=== PATIENT | female | born 1945 | race Caucasian/White ===

== ENCOUNTER 2020-02-11 14:59 | Outpatient (CLI) | payer MEDICARE, BC, SELFPAY ==
[2020-02-11 15:17] LABS: Basophils Absolute Auto 0.1 K/mm3 (0.0-0.1); Basophils Percent Auto 0.8 % (0.2-1.2); Eosinophils Absolute Auto 0.3 K/mm3 (0-0.3); Eosinophils Percent Auto 4.3 % (0-4.4); Hematocrit 35.1 % (37.0-47.0); Hemoglobin 10.3 g/dL (12.0-15.0); Immature Granulocyte Absolute 0.03 K/mm3 (0.00-0.031); Immature Granulocyte Percent A 0.5 % (0-0.5); Lymphocytes Absolute Auto 1.76 K/mm3 (0.9-3.2); Lymphocytes Percent Auto 29.2 % (18.3-44.2); Mean Corpuscular HGB Conc 29.3 g/dl (32-36); Mean Corpuscular Hemoglobin 24.6 pg (26-34); Mean Corpuscular Volume 83.8 fl (80-100); Mean Platelet Volume 9.7 fl (7.4-10.4); Monocytes Absolute Auto 0.6 K/mm3 (0.1-0.6); Monocytes Percent Auto 10.3 % (2.6-8.5); Neutrophils Absolute Auto 3.3 K/mm3 (1.3-6.7); Neutrophils Percent Auto 54.9 % (45.5-73.1); Platelet Count Result 274 k/mm3 (150-375); Red Blood Count 4.19 M/mm3 (4.2-5.4); Red Cell Distribution Width 22.1 % (11.5-14.5); Reticulocyte Hemoglobin Conten 33.7 pg (28.2-35.7); Reticulocyte Percent 2.51 % (0.7-4.3); Reticulocytes Absolute 0.11 B/L (32.2-175.7)
[2020-02-11 15:22] LABS: Hypochromasia 1+ (NORMAL); Platelet Estimate Adequate (Adequate)
[2020-02-11 16:29] LABS: Iron 57 ug/dL (37-170)
[2020-02-11 16:32] LABS: Potassium 4.7 mmol/L (3.4-5.0)
[2020-02-11 16:34] LABS: Alanine Aminotransferase 19 U/L (4-35); Albumin Level 4.3 g/dL (3.5-5.1); Alkaline Phosphatase 109 U/L (38-126); Aspartate Amino Transferase 32 U/L (14-36); Bilirubin,Total 0.4 mg/dL (0.2-1.3); Blood Urea Nitrogen 19 mg/dL (7-17); Calcium 9.5 mg/dL (8.4-10.2); Carbon Dioxide 27 mmol/L (22-30); Chloride 103 mmol/L (98-107); Estimated Glomerular Filt Rate 40; Glucose 84 mg/dL (65-105); Sodium 137 mmol/L (137-145)
[2020-02-11 16:38] LABS: Percent Iron Saturation 17 % (20-50)
[2020-02-11 17:20] LABS: Vitamin B12 > 1000.0 pg/mL (239-931)
[2020-02-14 03:11] LABS: Albumin 4.1 g/dL (3.8-4.8); Alpha 1 Globulin 0.3 g/dL (0.2-0.3); Alpha 2 Globulin 0.8 g/dL (0.5-0.9); Beta 1 Globulin 0.5 g/dL (0.4-0.6); Gamma Globulin 0.9 g/dL (0.8-1.7); Protein, Total 6.9 g/dL (6.1-8.1)
== END 2020-02-11 15:00 | disposition home or self-care (01) ==
LOC: ANHLAB 15:02
PROVIDERS: PCP Internal Medicine; Visit Provider Internal Medicine Hematology & Oncology
DX: D64.9 Anemia, unspecified (principal)
CPT/HCPCS: 36415; 80053; 82607; 82728; 83540; 83550; 84155; 84165; 85025; 85046; 86334

== ENCOUNTER 2021-12-17 14:40 | Inpatient (IN) | payer MEDICARE, BC, SELFPAY ==
[2021-12-17] VITALS (25 sets, daily range): BP systolic 98–132; BP diastolic 42–75; PULSE 73–95; RESP 6–23; TEMP 36.2–36.8; O2SAT 83–99
--- NOTE | ~2021-12-17 | CT_ITS ---
EXAMINATION: CTA chest PE protocol DATE: 12/17/2021 16:29 INDICATION: Hypoxia and shortness of breath TECHNIQUE: Computed tomography angiography (CTA) of the chest was performed with 100 mL Omnipaque-350 intravenous contrast timed to evaluate the pulmonary arteries. Coronal maximum intensity projection 3D-reconstructions were created by the technologist. The dose-length product (DLP) was 834.47 mGy-cm. Automated exposure control and iterative reconstruction technique were employed. COMPARISON: None. FINDINGS: The pulmonary arteries are well-opacified. No pulmonary embolism is identified. Respiratory motion artifact somewhat limits examination. There are widespread groundglass opacities throughout a ll lung zones. There is no pleural effusion or pneumothorax. Cardiomegaly is noted. There is a modera te-sized sliding hiatal hernia. There are no pathologically enlarged thoracic lymph nodes. There is m ild thoracic spondylosis. IMPRESSION: 1. No pulmonary embolus identified, sensitivity slightly limited by motion artifact. 2. Diffuse lung disease, consistent with COVID 19 pneumonia. Reviewed, dictated and finalized at location F. ER FITTING IMPRESSION: 1. No pulmonary embolus identified, sensitivity slightly limited by motion [place] fact. 2. Diffuse lung disease, consistent with COVID 19 pneumonia.
--- NOTE | ~2021-12-17 | XR_ITS ---
EXAMINATION: XR chest 1V portable INDICATION: Hypoxia, COVID positive TECHNIQUE: Portable AP chest at 1519 hours COMPARISON: None available FINDINGS: There are patchy opacities throughout all lung zones. No pleural effusion or pneumothorax i s identified. The heart size is normal. There is a moderate-sized hiatal hernia. IMPRESSION: 1. Diffuse lung disease, consistent with COVID 19 pneumonia. Reviewed, dictated and finalized at location F. MANAGER
--- NOTE | 2021-12-17 14:51 | ECG_ITS ---
Measurements Intervals [place] Rate: 85 P: 26 [place]: 160 QRS: -10 QRSD: 73 T: 5 QT: 344 QTc: 411 Interpretive Statements SINUS RHYTHM LOW QRS VOLTAGE IN PRECORDIAL LEADS BASELINE ARTIFACT- I, II, III, AVR, AVL, AVF, V1-V6 BORDERLINE ECG Electronically Signed On 12-17-2021 15:25:22 MACHINE LACER by Kwan Ahn D.O.
[2021-12-17 15:09] LABS: Alveolar/Arterial O2 Gradient 102.8 mmHg; Base Excess ABG -4.4 mEq/l (+/-2.0); Carboxyhemoglobin 0.4 % THb (0-2.0); Fractional Inspired Oxygen 32 %; HCO3 ABG 20.4 mEq/l (22.0-26.0); Methemoglobin ABG 0.3 %THb (0-1.5); Oxygen Content ABG 13.7 %vol (16.0-22.0); Oxyhemoglobin 93.8 % THb (90.0-100.0); PCO2 ABG 36.1 mmHg (35.0-45.0); PO2 ABG 83.1 mmHg (80.0-100.0); Reduced Hemoglobin 5.5 %THb (0-5.0); Total Hemoglobin 10.3 g/dL (12.0-18.0); pH ABG 7.369 (7.350-7.450)
[2021-12-17 15:12] LABS: Device NASAL CANNULA; Modified Allen's Test Pass; Site Drawn LEFT RADIAL
[2021-12-17 15:25] LABS: Basophils Percent Auto 0.2 % (0.2-1.2); Eosinophils Percent Auto 0.9 % (0-4.4); Hematocrit 29.3 % (37.0-47.0); Hemoglobin 9.2 g/dL (12.0-15.0); Immature Granulocyte Absolute 0.02 K/mm3 (0.00-0.031); Immature Granulocyte Percent A 0.4 % (0-0.5); Lymphocytes Absolute Auto 0.78 K/mm3 (0.9-3.2); Lymphocytes Percent Auto 16.7 % (18.3-44.2); Mean Corpuscular HGB Conc 31.4 g/dl (32-36); Mean Corpuscular Hemoglobin 28.1 pg (26-34); Mean Corpuscular Volume 89.6 fl (80-100); Mean Platelet Volume 10.1 fl (7.4-10.4); Monocytes Absolute Auto 0.5 K/mm3 (0.1-0.6); Monocytes Percent Auto 11.1 % (2.6-8.5); Neutrophils Absolute Auto 3.3 K/mm3 (1.3-6.7); Neutrophils Percent Auto 70.7 % (45.5-73.1); Platelet Count Result 241 k/mm3 (150-375); Red Blood Count 3.27 M/mm3 (4.2-5.4); Red Cell Distribution Width 15.9 % (11.5-14.5); White Blood Count 4.7 K/mm3 (4.5-10.0)
[2021-12-17] MEDS: IPRATROPIUM BR 0.02% INH SOLN 0.5 MG/2.5 ML VIAL INHALATION (15:28)
[2021-12-17] MEDS: ALBUTEROL SULFATE NEB 2.5 MG/0.5 ML INH 5 MG INHALATION (15:28)
[2021-12-17 15:36] LABS: INR 1.2; Prothrombin Time 14.3 Seconds (11.1-14.7)
[2021-12-17 15:37] LABS: Partial Thromboplastin Time 34.7 SECONDS (22.3-36.8)
[2021-12-17 15:39] LABS: D Dimer 2.37 ug/mL (<0.48)
--- NOTE | 2021-12-17 15:39 | ED.SOB ---
HPI - SOB/Dyspnea General Chief Complaint: Weakness Stated Complaint: Lethargic,weakness, COVID + Time Seen by Provider: 12/17/21 15:17 Source: patient Mode of arrival: EMS Limitations: clinical condition History of Present Illness HPI Narrative: Patient is a 76-year-old female complain of shortness of breath, fatigue, generalized weakness, body aches x1 week. Patient states that she tested positive for Covid 2 days ago. Patient states that she is fully vaccinated from COVID has not had a booster. Patient denies any abdominal pain, nausea, vomiting, diarrhea, fever or chills. Patient's oxygen saturation on arrival was low 80s on room air. Patient does not use oxygen at home. Patient is a poor historian. Related Data Home Medications Medication Instructions Recorded Confirmed escitalopram oxalate 20 mg PO DAILY 02/25/20 02/25/20 furosemide 40 mg PO DAILY 02/25/20 02/25/20 magnesium oxide 400 mg PO DAILY 02/25/20 02/25/20 pantoprazole 40 mg PO 02/25/20 potassium chloride meq PO 02/25/20 pregabalin [Lyrica] 225 mg PO TID 02/25/20 02/25/20 zolpidem 5 mg PO HS PRN 02/25/20 02/25/20 allopurinol 100 mg tablet 200 mg PO DAILY tablet 05/10/20 calcitriol 0.25 mcg capsule 0.25 mcg PO DAILY 05/10/20 ergocalciferol (vitamin D2) 1,250 1,250 mcg PO MONTHLY 05/10/20 mcg (50,000 unit) capsule ferrous sulfate 142 mg (45 mg 142 mg PO DAILY 05/10/20 iron) tablet,extended release metolazone 2.5 mg tablet 2.5 mg PO DAILY 05/10/20 pravastatin 80 mg tablet 80 mg PO DAILY 05/10/20 Allergies Allergy/AdvReac Type Severity Reaction Status Date / Time KETOROLAC TROMETHAMINE Allergy Severe DIFFICULTY Uncoded 12/17/21 15:10 BREATHING Review of Systems Review of Systems: All systems reviewed & are unremarkable except as noted in HPI and below Constitutional: Constitutional: Denies chills, Denies excessive sweating, Denies fever(s), Denies headache(s) and Denies weight loss Eyes: Eyes: Denies blurry vision, Denies change in vision and Denies loss of vision ENT: Denies dizziness, Denies ear discharge, Denies headache(s), Denies lip swelling, Denies epistaxis, Denies nasal congestion, Denies neck pain, Denies throat swelling and Denies tongue swelling Cardiovascular: Cardiovascular: Denies chest pain, Denies chest pain at rest, Denies chest pain with activity, Denies diaphoresis, Denies rapid heart rate, Denies edema, Denies irregular heart rhythm, Denies lightheadedness and Denies palpitations Respiratory: Respiratory: Denies chest congestion, Denies cough and Denies hemoptysis Gastrointestinal: Gastrointestinal: Denies abdominal pain, Denies melena, Denies hematochezia, Denies diarrhea, Denies nausea, Denies vomiting and Denies hematemesis Musculoskeletal: Musculoskeletal: Denies abnormal gait, Denies deformity, Denies joint swelling, Denies limited range of motion, Denies neck pain and Denies numbness Neurologic: Denies Abnormal speech present, Denies abnormal gait, Denies confusion, Denies dizziness, Denies headache(s), Denies focal weakness, Denies loss of vision, Denies numbness, Denies Other visual disturbances, Denies Sensory deficit (Neuro) and Denies weakness Psychiatric: Psychiatric: Denies confusion, Denies depression, Denies auditory hallucinations, Denies homicidal ideation and Denies suicidal ideation Endocrine: Endocrine: Denies cold intolerance, Denies excessive sweating, Denies fatigue, Denies heat intolerance and Denies palpitations Hematologic/Lymphatic: Hematologic/Lymphatic: Denies easy bleeding and Denies easy bruising Allergic/Immunologic: Allergic/Immunologic: Denies lip swelling, Denies throat swelling and Denies tongue swelling PMFSH Past Medical History Medical History Peripheral neuropathy Trigeminal neuralgia Surgical History Surgical History History of arthroscopy of both knees History of m
[2021-12-17 15:42] LABS: Platelet Estimate Adequate (Adequate)
[2021-12-17 15:43] LABS: Atypical Lymphocytes Present
[2021-12-17 15:45] LABS: Troponin I < 0.012 ng/mL (0.000-0.034)
[2021-12-17] MEDS: DEXAMETHASONE SOD PHOS INJ 4 MG/ML VIAL 10 MG IV PUSH (15:46)
[2021-12-17 16:05] LABS: Alanine Aminotransferase 21 U/L (4-35); Albumin Level 3.5 g/dL (3.5-5.1); Alkaline Phosphatase 113 U/L (38-126); Anion Gap 6 mmol/L (8-16); Aspartate Amino Transferase 73 U/L (14-36); Bilirubin,Total 0.6 mg/dL (0.2-1.3); Blood Urea Nitrogen 25 mg/dL (7-17); Calcium 8.3 mg/dL (8.4-10.2); Carbon Dioxide 25 mmol/L (22-30); Chloride 109 mmol/L (98-107); Estimated CRCL calculation 40 ml/min; Estimated Glomerular Filt Rate 40; Glucose 106 mg/dL (65-110); Potassium 4.9 mmol/L (3.4-5.0); Sodium 140 mmol/L (137-145)
[2021-12-17 17:52] LABS: SARS-CoV-2 RNA PCR Positive
--- NOTE | 2021-12-17 19:05 | PC.NURSE ---
This patient, Rebekah Gupta, was admitted to [facility] Surg Room 304-01. Patient/family oriented to hospital policies and general routines including ID bracelet, bed and alarms, visiting hours, pain management, procedures, bathroom and other care routines, personal items, smoking policy, room service/diet, and visiting hours.Report received from Zeke ABAD. Information on how to activate the Rapid Response Team has been discussed. Patient/Family are encouraged to report perceived risks to care and to ask questions if they do not understand what they are told or what they should do.
[2021-12-17] MEDS: LACTATED RINGERS 1,000 ML 125 ML IV CONT (20:06)
[2021-12-18] VITALS (10 sets, daily range): BP systolic 117–129; BP diastolic 57–64; PULSE 68–91; RESP 17–20; TEMP 35.8–36.8; O2SAT 91–98
--- NOTE | 2021-12-18 02:08 | PM.IMHP ---
H&P: HPI History of Present Illness Date/Time: 12/17/21 [id number] this is a 76-year-old female patient to has been complaining of shortness of breath, fatigue, generalized weakness and body aches release 1 week. The patient is complaining of severe right knee pain. The patient tested positive for COVID 2 days ago. She is fully vaccinated with COVID but has not had her booster. She denies any abdominal pain nausea vomiting or any fever chills. The patient does not use oxygen at home and is a poor historian. The patient currently has oxygen on at 3 L per nasal cannula. Patient's chest x-ray was read as diffuse lung disease, consistent with COVID-[address] scan was read as no pulmonary embolism identified sensitivity slightly limited by motion artifact. Diffuse lung disease consistent with COVID 19 pneumonia. The patient was given Decadron, IV fluids and nebulizer the treatments in the emergency room.The patient is being admitted to inpatient services on the date of service of 12/17/2021. Chief Complaint: Shortness of breath Review of Systems Review of Systems: ROS unobtainable: Yes unobtainable due to mental status [facility] Past Medical History Medical History (Updated 12/18/21 @ 02:11 by Sushma Sagastume NP) Depression History of shingles Hyperlipidemia Kidney stones Peripheral neuropathy Trigeminal neuralgia Surgical History Surgical History (Updated 12/18/21 @ 02:11 by Sushma Sagastume NP) History of arthroscopy of both knees History of lumpectomy of left breast History of melanoma on back History of tooth extraction Total knee replacement status Right knee Trigeminal neuralgia s/p decompression surgery and gamma knife Family History Family History (Updated 12/18/21 @ 02:12 by Sushma Sagastume NP) Sibling Heart disease Multiple sclerosis Mother Cancer of unknown origin Breast cancer Father Acute myocardial infarction Social History Social History (Updated 12/18/21 @ 02:13 by Sushma Sagastume NP) Social History: The patient lives at home with her . She is a full code. Lifelong nonsmoker. Code status full code Smoking status: Never smoker Alcohol intake: unknown Substance use: unknown Substance use type: unknown Gender identity (if verbalized by the patient): Female Spiritual care concerns: No Meds Home Medications and Allergies Home Medications Medication Instructions Recorded Confirmed Type escitalopram oxalate 20 mg PO DAILY 02/25/20 12/17/21 History furosemide 40 mg PO DAILY 02/25/20 12/17/21 History pantoprazole 40 mg PO PRN PRN 02/25/20 12/17/21 History pregabalin [Lyrica] 225 mg PO TID 02/25/20 12/17/21 History zolpidem 5 mg PO HS PRN 02/25/20 12/17/21 History allopurinol 100 mg tablet 200 mg PO DAILY tablet 05/10/20 12/17/21 History calcitriol 0.25 mcg capsule 0.25 mcg PO DAILY 05/10/20 12/17/21 History ergocalciferol (vitamin D2) 1,250 1,250 mcg PO MONTHLY 05/10/20 12/17/21 History mcg (50,000 unit) capsule ferrous sulfate 142 mg (45 mg 142 mg PO DAILY 05/10/20 12/17/21 History iron) tablet,extended release pravastatin 80 mg tablet 80 mg PO DAILY 05/10/20 12/17/21 History Allergies Allergy/AdvReac Type Severity Reaction Status Date / Time KETOROLAC TROMETHAMINE Allergy Severe DIFFICULTY Uncoded 12/17/21 15:10 BREATHING Vital Signs Vital Signs - 24 hr 12/17/21 14:43 12/17/21 14:50 12/17/21 14:51 Temperature 36.2 C L Pulse Rate 89 95 93 Respiratory Rate 15 23 H 10 L Blood Pressure 98/54 L 98/54 L Pulse Oximetry 83 L 85 L 84 L 12/17/21 15:00 12/17/21 15:01 12/17/21 15:21 Temperature Pulse Rate 84 85 82 Respiratory Rate 16 16 Blood Pressure 104/62 Pulse Oximetry 94 95 12/17/21 15:31 12/17/21 15:34 12/17/21 15:37 Temperature Pulse Rate 84 89 89 Respiratory Rate 13 13 11 L Blood Pressure Pulse Oximetry 99 12/17/21 15:45 12/17/21 16:00 12/17/21 16:31 Temperature
--- NOTE | 2021-12-18 02:41 | PCRCNOTE ---
Window of time for administration has passed. See next scheduled administration.
[2021-12-18] MEDS: ALBUTEROL SULFATE NEB 2.5 MG/0.5 ML INH 5 MG INHALATION (02:47)
[2021-12-18 03:10] LABS: Alanine Aminotransferase 22 U/L (4-35); Estimated CRCL calculation 51 ml/min; Estimated Glomerular Filt Rate 54
[2021-12-18 03:31] LABS: INR 1.1; Prothrombin Time 13.8 Seconds (11.1-14.7)
[2021-12-18] MEDS: REMDESIVIR 200 MG/NS 250 ML 200 MG/250 ML BAG 250 MG IVPB (03:42)
[2021-12-18] MEDS: PREGABALIN (*CRX) 75 MG CAPSULE 225 MG PO ×2 (03:42→17:37)
[2021-12-18] MEDS: calcitrioL 0.25 MCG CAPSULE PO (08:32)
[2021-12-18] MEDS: FERROUS SULFATE DRIED 142 MG TABCR PO (08:32)
[2021-12-18] MEDS: allopurinoL 100 MG TABLET 200 MG PO (08:32)
[2021-12-18] MEDS: PRAVASTATIN SODIUM 20 MG TABLET 80 MG PO (08:32)
[2021-12-18] MEDS: ESCITALOPRAM OXALATE 10 MG TABLET 20 MG PO (08:32)
[2021-12-18] MEDS: FUROSEMIDE 40 MG TABLET PO (08:32)
[2021-12-18] MEDS: ENOXAPARIN 40 MG/0.4 ML SYRINGE SUB-Q (08:33)
[2021-12-18] MEDS: PREGABALIN (*CRX) 75 MG CAPSULE 450 MG PO (11:21)
--- NOTE | 2021-12-18 12:47 | PM.IMPN ---
Progress Note: A&P Assessment and Plan (1) Acute respiratory failure with hypoxia: Code(s): J96.01 - Acute respiratory failure with hypoxia Status: Acute Assessment and Plan: Secondary to COVID-19 CTA negative for PE with diffuse lung disease Became hypoxic with activity down to 86% this afternoon Patient requiring 4 L supplemental O2 per nasal cannula. Plan as below (2) Pneumonia due to 2019 novel coronavirus: Code(s): U07.1 - COVID-19; J12.82 - Pneumonia due to coronavirus disease 2019 Status: Acute Assessment and Plan: Reportedly tested positive on 12/10/2021 with diffuse lung disease on CXR Continue dexamethasone and remdesivir. Monitor LFTs Supplemental O2 as needed with goal saturations 92% or above Supportive care to include bronchodilators, expectorants, antipyretics, incentive spirometry Trend inflammatory markers. Vaccination status unknown, no documented COVID immunization. (3) Depression: Code(s): F32.A - Depression, unspecified Status: Chronic Assessment and Plan: No acute issues Continue lexapro (4) Anemia of chronic renal failure, stage 3 (moderate): Code(s): N18.3 - Chronic kidney disease, stage 3 (moderate); D63.1 - Anemia in chronic kidney disease Status: Acute Assessment and Plan: No evidence of bleeding, patient is hemodynamically stable Continue to monitor H&H (5) Trigeminal neuralgia: Code(s): G50.0 - Trigeminal neuralgia Status: Acute Assessment and Plan: She endorses left sided facial pain Continue lyrica Analgesics available as needed Subjective Date/time seen: 12/18/21 12:47 Interval history: Date of service: 12/18/2021 Rebekah Gupta is a 76-year-old female with a history of trigeminal neuralgia, peripheral neuropathy, hyperlipidemia, depression who is seen in follow up for COVID-19 pneumonia. She is feeling okay today. She denies shortness of breath. She is coughing occasionally. Denies chest pain. She does have left sided facial pain related to her trigeminal neuralgia. Denies headache. No N/V. Reports decreased appetite and did not eat much of her breakfast today. She endorses some burning discomfort in her right knee. She got up and went to the bathroom today using the oscar Doostang. She notes that over the past few days she has had increased difficulty getting around. Denies weakness or dizziness but feels somewhat lightheaded. She denies dysuria. Review of Systems Review of Systems: All systems reviewed & are unremarkable except as noted in HPI and below Exam Narrative: General: Well-nourished, well-appearing 76 year-old female, sitting up in bed putting pressure on the left side of her face, comfortable, NARD Neuro: awake, alert and oriented x4, speech clear, no focal neuro deficits noted, exhibits forgetfulness in conversation HEENMT: normocephalic, atraumatic, EOMI, sclerae anicteric Respiratory: Diminished breath sounds bilaterally, nonlabored breathing Cardio: regular rate, regular rhythm with S1-S2 Abdomen: nondistended, normoactive bowel sounds, soft, nontender to palpation Extremities: Right knee nontender to palpation, bilateral lower extremities with trace edema, no erythema or tenderness to palpation, DP pulses 2+ bilaterally Skin: no rashes or lesions, warm and dry Psych: appropriate mood and affect, judgment and insight fair Objective Data Vital Signs Vital Signs: Vital Signs - 24 hr 12/17/21 14:43 12/17/21 14:50 12/17/21 14:51 Temperature 97.2 F L Pulse Rate 89 95 93 Respiratory Rate 15 23 H 10 L Blood Pressure 98/54 L 98/54 L Pulse Oximetry 83 L 85 L 84 L 12/17/21 15:00 12/17/21 15:01 12/17/21 15:21 Temperature Pulse Rate 84 85 82 Respiratory Rate 16 16 Blood Pressure 104/62 Pulse Oximetry 94 95 12/17/21 15:31 12/17/21 15:34 12/17/21 15:37 Temperature Pulse Rate 84 89 89 Respiratory Rate 13 13 11 L Blood
[2021-12-18] MEDS: ALBUTEROL SULFATE (*SP) INHALER 2 PUFF INHALATION ×2 (13:42→19:45)
[2021-12-18] MEDS: HYDROcodone/acetaminophen (*CRX) 5-325 MG TABLET 1 TAB PO (20:08)
[2021-12-18] MEDS: guaiFENesin 12 HR 600 MG TABCR PO (20:08)
[2021-12-19] VITALS (11 sets, daily range): BP systolic 94–141; BP diastolic 52–66; PULSE 55–87; RESP 18; TEMP 35.9–36.8; O2SAT 80–100
[2021-12-19] MEDS: ALBUTEROL SULFATE (*SP) INHALER 2 PUFF INHALATION ×4 (02:15→19:58)
[2021-12-19 07:45] LABS: Hemoglobin 9.1 g/dL (12.0-15.0); Mean Corpuscular HGB Conc 31.4 g/dl (32-36); Mean Corpuscular Hemoglobin 28.4 pg (26-34); Mean Corpuscular Volume 90.6 fl (80-100); Mean Platelet Volume 10.4 fl (7.4-10.4); Platelet Count Result 275 k/mm3 (150-375); White Blood Count 4.1 K/mm3 (4.5-10.0)
[2021-12-19 07:55] LABS: INR 1.3; Prothrombin Time 15.3 Seconds (11.1-14.7)
[2021-12-19 08:19] LABS: Alanine Aminotransferase 23 U/L (4-35); Albumin Level 3.5 g/dL (3.5-5.1); Alkaline Phosphatase 104 U/L (38-126); Anion Gap 8 mmol/L (8-16); Aspartate Amino Transferase 43 U/L (14-36); Bilirubin,Total 0.5 mg/dL (0.2-1.3); Blood Urea Nitrogen 26 mg/dL (7-17); CRP 19.4 mg/dL (<1.0); Calcium 8.7 mg/dL (8.4-10.2); Carbon Dioxide 25 mmol/L (22-30); Chloride 107 mmol/L (98-107); Estimated CRCL calculation 63 ml/min; Estimated Glomerular Filt Rate > 60; Glucose 161 mg/dL (65-110); Lactate Dehydrogenase 958 U/L (313-618); Potassium 4.2 mmol/L (3.4-5.0); Sodium 140 mmol/L (137-145)
[2021-12-19] MEDS: ENOXAPARIN 40 MG/0.4 ML SYRINGE SUB-Q (08:49)
[2021-12-19] MEDS: PREGABALIN (*CRX) 75 MG CAPSULE 450 MG PO (08:51)
[2021-12-19] MEDS: PRAVASTATIN SODIUM 20 MG TABLET 80 MG PO (08:52)
[2021-12-19] MEDS: ESCITALOPRAM OXALATE 10 MG TABLET 20 MG PO (08:52)
[2021-12-19] MEDS: allopurinoL 100 MG TABLET 200 MG PO (08:52)
[2021-12-19] MEDS: FERROUS SULFATE DRIED 142 MG TABCR PO (08:53)
[2021-12-19] MEDS: guaiFENesin 12 HR 600 MG TABCR PO ×2 (08:53→21:34)
[2021-12-19] MEDS: calcitrioL 0.25 MCG CAPSULE PO (08:53)
[2021-12-19] MEDS: FUROSEMIDE 40 MG TABLET PO (08:53)
[2021-12-19] MEDS: POTASSIUM CHLORIDE 20 MEQ TABLET.ER PO (08:53)
[2021-12-19] MEDS: REMDESIVIR 100 MG/NS 250 ML 100 MG/250 ML BAG 250 MG IVPB (11:09)
[2021-12-19] MEDS: PREGABALIN (*CRX) 75 MG CAPSULE 225 MG PO (16:44)
--- NOTE | 2021-12-19 16:45 | PM.IMPN ---
Progress Note: A&P Assessment and Plan (1) Acute respiratory failure with hypoxia: Code(s): J96.01 - Acute respiratory failure with hypoxia Status: Acute Assessment and Plan: Secondary to COVID-19 CTA negative for PE with diffuse lung disease Became hypoxic with activity down to 80% this morning and required up to 6 L per nasal cannula Patient now maintaining adequate O2 sats on 3 L supplemental O2 per nasal cannula. Plan as below (2) Pneumonia due to 2019 novel coronavirus: Code(s): U07.1 - COVID-19; J12.82 - Pneumonia due to coronavirus disease 2019 Status: Acute Assessment and Plan: Reportedly tested positive on 12/10/2021 with diffuse lung disease on CXR Continue dexamethasone and remdesivir #2. Monitor LFTs Supplemental O2 as needed with goal saturations 92% or above Supportive care to include bronchodilators, expectorants, antipyretics, incentive spirometry Trend inflammatory markers. She completed covid vaccination but has not received booster. Needs booster after recovery. (3) Depression: Code(s): F32.A - Depression, unspecified Status: Chronic Assessment and Plan: No acute issues Continue lexapro (4) Anemia of chronic renal failure, stage 3 (moderate): Code(s): N18.3 - Chronic kidney disease, stage 3 (moderate); D63.1 - Anemia in chronic kidney disease Status: Acute Assessment and Plan: No evidence of bleeding, patient is hemodynamically stable Continue to monitor H&H H&H remaining stable (5) Trigeminal neuralgia: Code(s): G50.0 - Trigeminal neuralgia Status: Acute Assessment and Plan: She endorses left sided facial pain Continue lyrica Analgesics available as needed (6) Status post right knee replacement: Code(s): Z96.651 - Presence of right artificial knee joint Status: Acute Assessment and Plan: Patient had recent right knee replacement in October 2021. Continue PT/OT Subjective Date/time seen: 12/19/21 16:45 Interval history: Date of service: 12/19/2021 Rebekah Gupta is a 76-year-old female with a history of trigeminal neuralgia, peripheral neuropathy, hyperlipidemia, depression who is seen in follow up for COVID-19 pneumonia. She is feeling a little bit better today. Denies shortness of breath or cough. She was able to get up and walk to the bathroom today. Reports she is tolerating therapy well. She did have some discomfort in her right knee today with ambulation. Denies nausea or vomiting. Reports poor appetite and states she did not you much of her breakfast or lunch. Denies dizziness, lightheadedness, weakness. Denies fever or chills. No headaches or body aches. She complains of left sided facial pain and states she would like a pain pill. She wants to go home. Review of Systems Review of Systems: All systems reviewed & are unremarkable except as noted in HPI and below Exam Narrative: General: Well-nourished, well-appearing 76 year-old female, sitting up in bed putting pressure on the left side of her face, comfortable, NARD Neuro: awake, alert and oriented x4, speech clear, no focal neuro deficits noted, exhibits forgetfulness in conversation HEENMT: normocephalic, atraumatic, EOMI, sclerae anicteric Respiratory: Diminished breath sounds bilaterally, nonlabored breathing Cardio: regular rate, regular rhythm with S1-S2 Abdomen: nondistended, normoactive bowel sounds, soft, nontender to palpation Extremities: Bilateral knees nontender to palpation, bilateral lower extremities with 1+ edema, no erythema or tenderness to palpation, DP pulses 2+ bilaterally Skin: no rashes or lesions, warm and dry Psych: appropriate mood and affect, judgment and insight fair Objective Data Vital Signs Vital Signs: Vital Signs - 24 hr 12/18/21 19:52 12/18/21 19:55 12/18/21 20:00 Temperature 97.9 F Pulse Rate 85 Respiratory Rate 20 Blood Pre
[2021-12-19] MEDS: HYDROcodone/acetaminophen (*CRX) 5-325 MG TABLET 1 TAB PO (21:55)
[2021-12-20] VITALS (8 sets, daily range): BP systolic 117–130; BP diastolic 45–77; PULSE 64–78; RESP 16–18; TEMP 35.9–36.6; O2SAT 93–100
[2021-12-20] MEDS: ALBUTEROL SULFATE (*SP) INHALER 2 PUFF INHALATION ×4 (01:53→20:07)
[2021-12-20] MEDS: HYDROcodone/acetaminophen (*CRX) 5-325 MG TABLET 1 TAB PO ×2 (04:52→20:57)
[2021-12-20 06:19] LABS: Hematocrit 29.6 % (37.0-47.0); Hemoglobin 9.2 g/dL (12.0-15.0); Mean Corpuscular HGB Conc 31.1 g/dl (32-36); Mean Corpuscular Hemoglobin 27.6 pg (26-34); Mean Corpuscular Volume 88.9 fl (80-100); Mean Platelet Volume 10.4 fl (7.4-10.4); Platelet Count Result 336 k/mm3 (150-375); Red Blood Count 3.33 M/mm3 (4.2-5.4); Red Cell Distribution Width 15.9 % (11.5-14.5); White Blood Count 4.5 K/mm3 (4.5-10.0)
[2021-12-20 06:35] LABS: INR 1.3; Prothrombin Time 15.5 Seconds (11.1-14.7)
[2021-12-20 07:02] LABS: Alanine Aminotransferase 21 U/L (4-35); Albumin Level 3.6 g/dL (3.5-5.1); Alkaline Phosphatase 102 U/L (38-126); Anion Gap 13 mmol/L (8-16); Aspartate Amino Transferase 31 U/L (14-36); Bilirubin,Total 0.5 mg/dL (0.2-1.3); Blood Urea Nitrogen 30 mg/dL (7-17); CRP 13.7 mg/dL (<1.0); Calcium 9.2 mg/dL (8.4-10.2); Carbon Dioxide 26 mmol/L (22-30); Chloride 106 mmol/L (98-107); Estimated CRCL calculation 51 ml/min; Estimated Glomerular Filt Rate 54; Glucose 165 mg/dL (65-110); Lactate Dehydrogenase 857 U/L (313-618); Potassium 3.4 mmol/L (3.4-5.0); Sodium 145 mmol/L (137-145)
[2021-12-20] MEDS: ENOXAPARIN 40 MG/0.4 ML SYRINGE SUB-Q (07:59)
[2021-12-20] MEDS: POTASSIUM CHLORIDE 20 MEQ TABLET.ER PO (08:00)
[2021-12-20] MEDS: calcitrioL 0.25 MCG CAPSULE PO (08:01)
[2021-12-20] MEDS: ESCITALOPRAM OXALATE 10 MG TABLET 20 MG PO (08:01)
[2021-12-20] MEDS: guaiFENesin 12 HR 600 MG TABCR PO ×2 (08:01→20:51)
[2021-12-20] MEDS: FERROUS SULFATE DRIED 142 MG TABCR PO (08:01)
[2021-12-20] MEDS: FUROSEMIDE 40 MG TABLET PO (08:02)
[2021-12-20] MEDS: allopurinoL 100 MG TABLET 200 MG PO (08:02)
[2021-12-20] MEDS: PREGABALIN (*CRX) 75 MG CAPSULE 450 MG PO (08:03)
[2021-12-20] MEDS: PRAVASTATIN SODIUM 20 MG TABLET 80 MG PO (08:04)
[2021-12-20] MEDS: REMDESIVIR 100 MG/NS 250 ML 100 MG/250 ML BAG 250 MG IVPB (10:02)
--- NOTE | 2021-12-20 12:19 | PM.IMPN ---
Progress Note: A&P Assessment and Plan (1) Acute respiratory failure with hypoxia: Code(s): J96.01 - Acute respiratory failure with hypoxia Status: Acute Assessment and Plan: Secondary to COVID-19 CTA negative for PE with diffuse lung disease Found to have O2 desaturations with activity She has required up to 6 L per nasal cannula Patient now maintaining adequate O2 sats on 3 L supplemental O2 per nasal cannula. Plan as below (2) Pneumonia due to 2019 novel coronavirus: Code(s): U07.1 - COVID-19; J12.82 - Pneumonia due to coronavirus disease 2019 Status: Acute Assessment and Plan: Reportedly tested positive on 12/10/2021 with diffuse lung disease on CXR. Confirmatory PCR testing positive at this facility on 12/17/21 Continue dexamethasone and remdesivir #3. Monitor LFTs Supplemental O2 as needed with goal saturations 92% or above Supportive care to include bronchodilators, expectorants, antipyretics, incentive spirometry Inflammatory markers trending downward She completed covid vaccination but has not received booster. Needs booster after recovery. (3) Depression: Code(s): F32.A - Depression, unspecified Status: Chronic Assessment and Plan: No acute issues Continue lexapro (4) Anemia of chronic renal failure, stage 3 (moderate): Code(s): N18.3 - Chronic kidney disease, stage 3 (moderate); D63.1 - Anemia in chronic kidney disease Status: Acute Assessment and Plan: Stable, no acute issues Renal function appears consistent with baseline H&H remaining stable. Continue to monitor Patient is hemodynamically stable Continue oral iron supplementation (5) Trigeminal neuralgia: Code(s): G50.0 - Trigeminal neuralgia Status: Acute Assessment and Plan: She endorses left sided facial pain Continue lyrica Analgesics available as needed (6) Status post right knee replacement: Code(s): Z96.651 - Presence of right artificial knee joint Status: Acute Assessment and Plan: Patient had recent right knee replacement in October 2021. Continue PT/OT Subjective Date/time seen: 12/20/21 12:19 Interval history: Date of service: 12/20/2021 Rebekah Gupta is a 76-year-old female with a history of trigeminal neuralgia, peripheral neuropathy, hyperlipidemia, depression who is seen in follow up for COVID-19 pneumonia. She feels the same today. Denies shortness of breath. Denies cough. She does endorse poor appetite and states that she is just not feeling hungry. She did not eat much of her breakfast today. She denies weakness but is requiring Gricel Steady for getting to the bathroom. She continues to endorse left-sided facial pain and states it is worse when she talks. She denies dizziness or lightheadedness. Review of Systems Review of Systems: All systems reviewed & are unremarkable except as noted in HPI and below Exam Narrative: General: Well-nourished, well-appearing 76 year-old female, sitting up in bed, comfortable, NARD Neuro: awake, alert and oriented x4, speech clear, no focal neuro deficits noted, exhibits forgetfulness in conversation HEENMT: normocephalic, atraumatic, EOMI, sclerae anicteric Respiratory: Clear to auscultation bilaterally, nonlabored breathing Cardio: regular rate, regular rhythm with S1-S2 Abdomen: nondistended, normoactive bowel sounds, soft, nontender to palpation Extremities: Bilateral knees nontender to palpation, bilateral lower extremities with trace edema, no erythema or tenderness to palpation, DP pulses 2+ bilaterally Skin: no rashes or lesions, warm and dry Psych: appropriate mood and affect, judgment and insight intact Objective Data Vital Signs Vital Signs: Vital Signs - 24 hr 12/19/21 16:22 12/19/21 20:00 12/19/21 20:03 Temperature 96.6 F L 97.1 F L Pulse Rate 55 L 85 Respiratory Rate 18 18 Blood Pressure 94/52 L 141/63 H
[2021-12-20 15:02] LABS: Glucose Point of Care 218 mg/dl (65-105)
[2021-12-20] MEDS: PREGABALIN (*CRX) 75 MG CAPSULE 225 MG PO (16:58)
[2021-12-20] MEDS: ZOLPIDEM TARTRATE (*CRX) 5 MG TABLET PO (23:41)
[2021-12-21] VITALS (10 sets, daily range): BP systolic 123–139; BP diastolic 51–77; PULSE 56–82; RESP 16–18; TEMP 36–36.5; O2SAT 90–100
[2021-12-21] MEDS: ALBUTEROL SULFATE (*SP) INHALER 2 PUFF INHALATION ×4 (02:48→19:24)
[2021-12-21 07:13] LABS: Hematocrit 29.5 % (37.0-47.0); Hemoglobin 9.2 g/dL (12.0-15.0); Mean Corpuscular HGB Conc 31.2 g/dl (32-36); Mean Corpuscular Hemoglobin 28.1 pg (26-34); Mean Corpuscular Volume 90.2 fl (80-100); Mean Platelet Volume 10.6 fl (7.4-10.4); Platelet Count Result 328 k/mm3 (150-375); Red Blood Count 3.27 M/mm3 (4.2-5.4); Red Cell Distribution Width 15.9 % (11.5-14.5); White Blood Count 4.3 K/mm3 (4.5-10.0)
[2021-12-21 07:20] LABS: Alanine Aminotransferase 19 U/L (4-35); Albumin Level 3.5 g/dL (3.5-5.1); Alkaline Phosphatase 94 U/L (38-126); Anion Gap 9 mmol/L (8-16); Aspartate Amino Transferase 24 U/L (14-36); Bilirubin,Total 0.5 mg/dL (0.2-1.3); Blood Urea Nitrogen 32 mg/dL (7-17); Carbon Dioxide 28 mmol/L (22-30); Chloride 109 mmol/L (98-107); Estimated CRCL calculation 46 ml/min; Estimated Glomerular Filt Rate 49; Glucose 156 mg/dL (65-110); Potassium 3.1 mmol/L (3.4-5.0); Sodium 146 mmol/L (137-145)
[2021-12-21 07:35] LABS: INR 1.3; Prothrombin Time 15.5 Seconds (11.1-14.7)
[2021-12-21] MEDS: PREGABALIN (*CRX) 75 MG CAPSULE 450 MG PO (09:04)
[2021-12-21] MEDS: FERROUS SULFATE DRIED 142 MG TABCR PO (09:05)
[2021-12-21] MEDS: calcitrioL 0.25 MCG CAPSULE PO (09:05)
[2021-12-21] MEDS: guaiFENesin 12 HR 600 MG TABCR PO ×2 (09:05→21:14)
[2021-12-21] MEDS: allopurinoL 100 MG TABLET 200 MG PO (09:05)
[2021-12-21] MEDS: POTASSIUM CHLORIDE 20 MEQ TABLET.ER PO (09:05)
[2021-12-21] MEDS: ESCITALOPRAM OXALATE 10 MG TABLET 20 MG PO (09:05)
[2021-12-21] MEDS: PANTOPRAZOLE 40 MG TABLET PO (09:05)
[2021-12-21] MEDS: FUROSEMIDE 40 MG TABLET PO (09:05)
[2021-12-21] MEDS: PRAVASTATIN SODIUM 20 MG TABLET 80 MG PO (09:05)
[2021-12-21] MEDS: ENOXAPARIN 40 MG/0.4 ML SYRINGE SUB-Q (09:06)
[2021-12-21] MEDS: REMDESIVIR 100 MG/NS 250 ML 100 MG/250 ML BAG 250 MG IVPB (10:50)
[2021-12-21] MEDS: POTASSIUM CHLORIDE 20 MEQ TABLET 40 MEQ PO (12:41)
[2021-12-21] MEDS: HYDROcodone/acetaminophen (*CRX) 5-325 MG TABLET 1 TAB PO ×2 (12:48→21:16)
[2021-12-21] MEDS: PREGABALIN (*CRX) 75 MG CAPSULE 225 MG PO (17:19)
--- NOTE | 2021-12-21 17:44 | P.PNIM_ITS ---
Progress Note: A&P Assessment and Plan (1) Acute respiratory failure with hypoxia: Code(s): J96.01 - Acute respiratory failure with hypoxia Status: Acute Assessment and Plan: Secondary to COVID-19 * CTA negative for PE with diffuse lung disease * Found to have O2 desaturations with activity * She has required up to 6 L per nasal cannula * Patient now maintaining adequate O2 sats on 2 L supplemental O2 per nasal cannula. * Plan as below (2) Pneumonia due to 2019 novel coronavirus: Code(s): U07.1 - COVID-19; J12.82 - Pneumonia due to coronavirus disease 2019 Status: Acute Assessment and Plan: Reportedly tested positive on 12/10/2021 with diffuse lung disease on CXR. Confirmatory PCR testing positive at this facility on 12/17/21 * Continue dexamethasone and remdesivir #4. Monitor LFTs * Supplemental O2 as needed with goal saturations 92% or above * Supportive care to include bronchodilators, expectorants, antipyretics, incentive spirometry * Inflammatory markers trending downward * She completed covid vaccination but has not received booster. Needs booster after recovery. (3) Depression: Code(s): F32.A - Depression, unspecified Status: Chronic Assessment and Plan: She does endorse feeling down today * Continue lexapro (4) Anemia of chronic renal failure, stage 3 (moderate): Code(s): N18.3 - Chronic kidney disease, stage 3 (moderate); D63.1 - Anemia in chronic kidney disease Status: Acute Assessment and Plan: Stable, no acute issues * Renal function appears consistent with baseline * H&H remaining stable. Continue to monitor * Patient is hemodynamically stable * Continue oral iron supplementation (5) Trigeminal neuralgia: Code(s): G50.0 - Trigeminal neuralgia Status: Acute Assessment and Plan: She endorses left sided facial pain * Continue lyrica * Analgesics available as needed (6) Status post right knee replacement: Code(s): Z96.651 - Presence of right artificial knee joint Status: Acute Assessment and Plan: Patient had recent right knee replacement in October 2021. * Continue PT/OT (7) Hypokalemia: Code(s): E87.6 - Hypokalemia Status: Acute Assessment and Plan: Potassium 3.1 today * 40 mEq PO KCl * Monitor BMP (8) Fall: Code(s): W19.XXXA - Unspecified fall, initial encounter Status: Acute Assessment and Plan: Patient fell getting out of bed today. See subjective for details * No injuries. Did not hit head. * Fall precautions implemented Subjective Date/time seen: 12/21/21 17:44 Interval history: Date of service: 12/21/2021 Rebekah Gupta is a 76-year-old female with a history of trigeminal neuralgia, peripheral neuropathy, hyperlipidemia, depression who is seen in follow up for COVID-19 pneumonia. She is feeling down today. She is sad about being in the hospital and misses her who could not visit today due to the weather. She is not wanting to eat but has been at least having small amounts of her meals. She denies shortness of breath or cough. She did fall out of her bed today. Unfortunately her bed alarm was inactivated and she caught herself out of bed to use the bathroom. RN found her sitting on her bottom, it seemed as though she slid out of the bed. The patient recalled the details, stating that she simply slipped and lost her balance. She stated she hit her bottom and her elbows. She denies pa
--- NOTE | 2021-12-21 17:44 | PM.IMPN ---
Progress Note: A&P Assessment and Plan (1) Acute respiratory failure with hypoxia: Code(s): J96.01 - Acute respiratory failure with hypoxia Status: Acute Assessment and Plan: Secondary to COVID-19 CTA negative for PE with diffuse lung disease Found to have O2 desaturations with activity She has required up to 6 L per nasal cannula Patient now maintaining adequate O2 sats on 2 L supplemental O2 per nasal cannula. Plan as below (2) Pneumonia due to 2019 novel coronavirus: Code(s): U07.1 - COVID-19; J12.82 - Pneumonia due to coronavirus disease 2019 Status: Acute Assessment and Plan: Reportedly tested positive on 12/10/2021 with diffuse lung disease on CXR. Confirmatory PCR testing positive at this facility on 12/17/21 Continue dexamethasone and remdesivir #4. Monitor LFTs Supplemental O2 as needed with goal saturations 92% or above Supportive care to include bronchodilators, expectorants, antipyretics, incentive spirometry Inflammatory markers trending downward She completed covid vaccination but has not received booster. Needs booster after recovery. (3) Depression: Code(s): F32.A - Depression, unspecified Status: Chronic Assessment and Plan: She does endorse feeling down today Continue lexapro (4) Anemia of chronic renal failure, stage 3 (moderate): Code(s): N18.3 - Chronic kidney disease, stage 3 (moderate); D63.1 - Anemia in chronic kidney disease Status: Acute Assessment and Plan: Stable, no acute issues Renal function appears consistent with baseline H&H remaining stable. Continue to monitor Patient is hemodynamically stable Continue oral iron supplementation (5) Trigeminal neuralgia: Code(s): G50.0 - Trigeminal neuralgia Status: Acute Assessment and Plan: She endorses left sided facial pain Continue lyrica Analgesics available as needed (6) Status post right knee replacement: Code(s): Z96.651 - Presence of right artificial knee joint Status: Acute Assessment and Plan: Patient had recent right knee replacement in October 2021. Continue PT/OT (7) Hypokalemia: Code(s): E87.6 - Hypokalemia Status: Acute Assessment and Plan: Potassium 3.1 today 40 mEq PO KCl Monitor BMP (8) Fall: Code(s): W19.XXXA - Unspecified fall, initial encounter Status: Acute Assessment and Plan: Patient fell getting out of bed today. See subjective for details No injuries. Did not hit head. Fall precautions implemented Subjective Date/time seen: 12/21/21 17:44 Interval history: Date of service: 12/21/2021 Rebekah Gupta is a 76-year-old female with a history of trigeminal neuralgia, peripheral neuropathy, hyperlipidemia, depression who is seen in follow up for COVID-19 pneumonia. She is feeling down today. She is sad about being in the hospital and misses her who could not visit today due to the weather. She is not wanting to eat but has been at least having small amounts of her meals. She denies shortness of breath or cough. She did fall out of her bed today. Unfortunately her bed alarm was inactivated and she caught herself out of bed to use the bathroom. RN found her sitting on her bottom, it seemed as though she slid out of the bed. The patient recalled the details, stating that she simply slipped and lost her balance. She stated she hit her bottom and her elbows. She denies pain in her buttocks but does have a little bit of soreness in the left elbow. She did not feel dizzy or lightheaded prior to falling. She did not hit her head. Review of Systems Review of Systems: All systems reviewed & are unremarkable except as noted in HPI and below Exam Narrative: General: Well-nourished, well-appearing 76 year-old female, sitting up in bed, comfortable, NARD Neuro: awake, alert and oriented x4, speech clear, no fo
[2021-12-21] MEDS: ZOLPIDEM TARTRATE (*CRX) 5 MG TABLET PO (21:16)
[2021-12-22] VITALS (8 sets, daily range): BP systolic 102–139; BP diastolic 49–73; PULSE 50–96; RESP 18–20; TEMP 36.4–36.5; O2SAT 92–98
[2021-12-22] MEDS: ALBUTEROL SULFATE (*SP) INHALER 2 PUFF INHALATION ×3 (01:55→14:36)
[2021-12-22] MEDS: HYDROcodone/acetaminophen (*CRX) 5-325 MG TABLET 1 TAB PO ×2 (03:00→10:16)
--- NOTE | 2021-12-22 07:35 | PCPTNOTE ---
The patient treatment was not able to be completed on 12/21/2021. Will plan to continue treatment per plan of care.
[2021-12-22 07:41] LABS: Hematocrit 30.7 % (37.0-47.0); Hemoglobin 9.5 g/dL (12.0-15.0); Mean Corpuscular HGB Conc 30.9 g/dl (32-36); Mean Corpuscular Hemoglobin 27.7 pg (26-34); Mean Corpuscular Volume 89.5 fl (80-100); Mean Platelet Volume 11.1 fl (7.4-10.4); Platelet Count Result 294 k/mm3 (150-375); Red Blood Count 3.43 M/mm3 (4.2-5.4); Red Cell Distribution Width 15.9 % (11.5-14.5); White Blood Count 5.2 K/mm3 (4.5-10.0)
[2021-12-22 07:49] LABS: INR 1.3; Prothrombin Time 15.5 Seconds (11.1-14.7)
[2021-12-22] MEDS: PREGABALIN (*CRX) 75 MG CAPSULE 450 MG PO (08:04)
[2021-12-22] MEDS: ESCITALOPRAM OXALATE 10 MG TABLET 20 MG PO (08:06)
[2021-12-22] MEDS: ENOXAPARIN 40 MG/0.4 ML SYRINGE SUB-Q (08:06)
[2021-12-22] MEDS: PRAVASTATIN SODIUM 20 MG TABLET 80 MG PO (08:07)
[2021-12-22] MEDS: calcitrioL 0.25 MCG CAPSULE PO (08:07)
[2021-12-22] MEDS: allopurinoL 100 MG TABLET 200 MG PO (08:07)
[2021-12-22] MEDS: FERROUS SULFATE DRIED 142 MG TABCR PO (08:08)
[2021-12-22] MEDS: POTASSIUM CHLORIDE 20 MEQ TABLET.ER PO (08:08)
[2021-12-22] MEDS: guaiFENesin 12 HR 600 MG TABCR PO (08:08)
[2021-12-22] MEDS: FUROSEMIDE 40 MG TABLET PO (08:08)
[2021-12-22 08:16] LABS: Alanine Aminotransferase 19 U/L (4-35); Albumin Level 3.7 g/dL (3.5-5.1); Alkaline Phosphatase 84 U/L (38-126); Anion Gap 7 mmol/L (8-16); Aspartate Amino Transferase 27 U/L (14-36); Bilirubin,Total 0.7 mg/dL (0.2-1.3); Blood Urea Nitrogen 33 mg/dL (7-17); CRP 4.1 mg/dL (<1.0); Calcium 9.2 mg/dL (8.4-10.2); Carbon Dioxide 28 mmol/L (22-30); Chloride 108 mmol/L (98-107); Estimated CRCL calculation 51 ml/min; Estimated Glomerular Filt Rate 54; Glucose 134 mg/dL (65-110); Lactate Dehydrogenase 835 U/L (313-618); Magnesium 2.1 mg/dL (1.6-2.3); Potassium 3.6 mmol/L (3.4-5.0); Sodium 143 mmol/L (137-145)
[2021-12-22] MEDS: REMDESIVIR 100 MG/NS 250 ML 100 MG/250 ML BAG 250 MG IVPB (10:15)
--- NOTE | 2021-12-22 13:49 | HOMEO2EVAL ---
Evaluation was performed at [facility] Home Oxygen Evaluation RC: Home Oxygen (O2) Evaluation Start: 12/22/21 12:31 Freq: ONCE Status: Active Protocol: RPE Activity Type Activity Date Activity User E-Sign Co-Sign Detail Recorded Client Recorded Date Recorded By Document 12/22/21 13:20 [email or web address] [id number] 12/22/21 13:49 DJO Document 12/22/21 13:25 [email or web address] [email or web address] 12/22/21 13:49 DJO Document 12/22/21 13:35 [email or web address] [email or web address] 12/22/21 13:49 DJO 12/22/21 12/22/21 12/22/21 13:20 13:25 13:35 Home O2 Evaluation Test Phase Resting Exercise Resting Oxygen Delivery Room Air Room Air Room Air Pulse Oximetry (90-100 %) 96 94 95 Pulse Rate (60-100 beats/min) 90 96 93 Home Oxygen Evaluation Comments PT WEAK, UNABLE TO AMBULATE, UP TO SIDE OF BED. NO HOME O2 NEEDED Treatment Charges O2 Evaluation - Inpatient
--- NOTE | 2021-12-22 13:49 | PCRCNOTE ---
HOME O2 EVAL DONE, NO HOME O2 NEEDED, UNABLE TO WALK, EXTREMELY WEAK, NO SOB, STOOD UP TO SIDE OF BED. RN NOTIFIED
--- NOTE | 2021-12-22 16:13 | PM.DS ---
DS: Admitting Diagnosis Discharge Date 12/22/2021 Admitting Diagnosis COVID pneumonia DS: Discharge Diagnosis Discharge Diagnosis (1) Acute respiratory failure with hypoxia: Code(s): J96.01 - Acute respiratory failure with hypoxia Status: Acute Assessment and Plan: Secondary to COVID-19 CTA negative for PE with diffuse lung disease She required up to 6 L supplemental O2 per nasal cannula during admission She was able to be weaned to room air Home O2 eval performed on day of discharge and she had no oxygen requirements (2) Pneumonia due to 2019 novel coronavirus: Code(s): U07.1 - COVID-19; J12.82 - Pneumonia due to coronavirus disease 2019 Status: Acute Assessment and Plan: Reportedly tested positive on 12/10/2021 with diffuse lung disease on CXR. Confirmatory PCR testing positive at this facility on 12/17/21 Completed 5 days of dexamethasone and remdesivir Required supplemental O2 as needed above but was able to be weaned prior to discharge with no ongoing O2 requirements Supportive care provided including bronchodilators, expectorants, antipyretics, incentive spirometry Downward trend inflammatory markers She completed COVID vaccination but had not received a booster. Needs booster after recovery (3) Depression: Code(s): F32.A - Depression, unspecified Status: Chronic Assessment and Plan: Mood remained stable, however she was feeling down due to being hospitalized Continue lexapro (4) Anemia of chronic renal failure, stage 3 (moderate): Code(s): N18.3 - Chronic kidney disease, stage 3 (moderate); D63.1 - Anemia in chronic kidney disease Status: Acute Assessment and Plan: Stable, no acute issues Renal function remain consistent with baseline H&H remained stable. Continue oral iron supplementation (5) Trigeminal neuralgia: Code(s): G50.0 - Trigeminal neuralgia Status: Acute Assessment and Plan: She endorsed left sided facial pain Continue lyrica Analgesics available as needed (6) Status post right knee replacement: Code(s): Z96.651 - Presence of right artificial knee joint Status: Acute Assessment and Plan: Patient had recent right knee replacement in October 2021. Participated in PT/OT during hospitalization (7) Hypokalemia: Code(s): E87.6 - Hypokalemia Status: Acute Assessment and Plan: Potassium was supplemented and normalized (8) Fall: Code(s): W19.XXXA - Unspecified fall, initial encounter Status: Acute Assessment and Plan: On 12/21, patient was getting up out of bed to use the restroom. Unfortunately her bed alarm was inactivated. She did have a fall in RN found her sitting on her bottom. Patient stated she slipped and lost her balance. Denied hitting her head. No loss of consciousness. She did not sustain any injuries. Fall precautions implemented. Patient was educated on fall precautions. She will continue with PT/OT at SNF on discharge DS: Summary Hospital Course Hospital Course: Date of admission: 12/17/2021 Date of discharge: 12/22/2021 Rebekah Gupta is a 76-year-old female with a history of trigeminal neuralgia, peripheral neuropathy, hyperlipidemia, depression who presented to the emergency department on 12/17/2021 with complaints of weakness after having a positive home COVID test. She was admitted to the hospitalist service for further evaluation and management. Please see above for further details. She was treated with dexamethasone and remdesivir was able to be weaned from oxygen. Overall she was feeling improved and was felt to no longer require inpatient care. SNF was arranged for continued therapy. Patient was discharged in hemodynamically stable condition on 12/22/2021. Status at Discharge Functional status at discharge: uses cane/walker Overall status at discharge: patient is progressing
[2021-12-22] MEDS: PREGABALIN (*CRX) 75 MG CAPSULE 225 MG PO (16:15)
== END 2021-12-22 18:25 | DRG 177 ==
LOC: ANHED 17:11 → ANH3MEDSUR 12-18 07:08
PROVIDERS: Emergency Medicine; Nurse Practitioner; Admitting Provider Internal Medicine; Emergency Provider Emergency Medicine; PCP Internal Medicine; Visit Provider Physician Assistant
DX: U07.1 COVID-19 (principal); J12.82 Pneumonia due to coronavirus disease 2019; J96.01 Acute respiratory failure with hypoxia; W06.XXXA Fall from bed, initial encounter; M25.522 Pain in left elbow; E78.5 Hyperlipidemia, unspecified; G62.9 Polyneuropathy, unspecified; G50.0 Trigeminal neuralgia; F32.A Depression, unspecified; N18.30 Chronic kidney disease, stage 3 unspecified; D63.1 Anemia in chronic kidney disease; M25.561 Pain in right knee; Z96.651 Presence of right artificial knee joint
CPT/HCPCS: 36415; 36600; 71045; 71275; 80053; 82375; 82565; 82728; 82805; 82948; 83050; 83605; 83615; 83735; 84460; 84484; 85025; 85027; 85380; 85610; 85730; 86140; 87040; 93005; 94618; 94640; 96374; 97110; 97116; 97161; 97165; 97530; 97535; 99291; A9270; C9803; J1100; J1650; J7120; Q9967; U0003; U0005

== ENCOUNTER 2022-12-08 15:43 | Emergency (ER) | payer MEDICARE, BC, SELFPAY ==
--- NOTE | ~2022-12-08 | XR_ITS ---
AP and oblique views of the left ribs, and PA view of the chest Clinical History: Pain Findings: No rib fracture is seen. Osseous alignment is anatomic. Lungs are clear, without focal cons olidation or pleural effusion. Cardiomediastinal contour is within normal limits. Large hiatal hernia present. Impression: No rib fracture is seen. Clear lungs. Large hiatal hernia. Reviewed, dictated and finalized at location . [employer] Impression: No rib fracture is seen. Clear lungs. Large hiatal hernia.
--- NOTE | ~2022-12-08 | XR_ITS ---
Right Hand Technique: PA, oblique, and lateral views were obtained. Clinical History: Pain Findings: No acute fracture or dislocation is seen. Osseous alignment is anatomic. Joint spaces are p reserved. Soft tissues are unremarkable. Impression: Unremarkable right hand. Reviewed, dictated and finalized at location M. CUTTER Impression: Unremarkable right hand.
[2022-12-08 15:57] VITALS: BP 116/70; PULSE 76; RESP 16; TEMP 36.6; O2SAT 96
--- NOTE | 2022-12-08 16:21 | ED.GENADULT ---
HPI - General Adult General Chief complaint: Extremity Injury, Upper Stated complaint: rt thumb, lt side/rib pain Time Seen by Provider: 12/08/22 16:20 Source: patient, family, RN notes reviewed and old records reviewed Mode of arrival: ambulatory Limitations: no limitations History of Present Illness HPI narrative: 77 year old female accompanied by spouse with complaints of falling in her bathroom on . Patient states that she was bent over and lost her balance and hit her ribs on the commode and thinks she jammed her thumb also. Patient denies any shortness of breath but reports increased discomfort to left rib area with deep breathing and if she coughs. patient does have swelling and bruising noted to right thumb but patient has full ROM of her right thumb and hand. Patient reports that she has taken Tylenol with no help and did take [place] which she has for her trigeminal neuralgia which has helped her discomfort. MD complaint: patient had fall at home hit left ribs on commode and jammed right thumb. Onset (ago): day(s) (3) Location: chest (left rib), right and upper extremity (right thumb) Severity scale (1-10): 6 Treatments prior to arrival: other (tylenol and pain medication) Related Data Home Medications Medication Instructions Recorded Confirmed escitalopram oxalate 20 mg tablet 20 mg PO DAILY 02/25/20 12/08/22 furosemide 40 mg tablet 40 mg PO DAILY 02/25/20 12/08/22 pregabalin 225 mg capsule (Lyrica) 450 mg PO DAILY 02/25/20 12/08/22 zolpidem 5 mg tablet 5 mg PO HS PRN Sleep 02/25/20 12/08/22 allopurinol 100 mg tablet 200 mg PO DAILY 05/10/20 12/08/22 calcitriol 0.25 mcg capsule 0.25 mcg PO DAILY 05/10/20 12/08/22 ergocalciferol (vitamin D2) 1,250 1,250 mcg PO WEEKLY 05/10/20 12/08/22 mcg (50,000 unit) capsule ferrous sulfate 142 mg (45 mg 142 mg PO DAILY 12/18/21 12/08/22 iron) tablet,extended release (Slow Fe) potassium chloride 20 mEq 20 meq PO TID 12/18/21 12/08/22 tablet,extended release pregabalin 225 mg capsule 225 mg PO 1700 12/18/21 12/08/22 raloxifene 60 mg tablet 60 mg PO DAILY 12/08/22 12/08/22 Allergies Allergy/AdvReac Type Severity Reaction Status Date / Time ketorolac Allergy Severe Difficulty Verified 12/08/22 15:49 Breathing Review of Systems Review of Systems: CONSTITUTIONAL: Denies fever, chills, or sweats. EYES: Denies visual changes, redness, or discharge. ENT: Denies rhinorrhea, congestion, sore throat, or otalgia. CARDIOVASCULAR: Denies chest pain, palpitations, or edema. RESPIRATORY: Denies cough or dyspnea. pain along anterior rib line GASTROINTESTINAL: Denies abdominal pain, nausea, vomiting, or diarrhea. GENITOURINARY: Denies dysuria or hematuria. SKIN: Denies rash or itching. MUSCULOSKELETAL: Denies back pain, positive for pain to her right thumb joint, or myalgia. NEUROLOGIC: Denies headache, numbness, or weakness. PSYCHIATRIC: Denies anxiety or depression. All systems reviewed & are unremarkable except as noted in HPI and below PMFSH Past Medical History Medical History (Updated 12/08/22 @ 17:20 by Anyi Mejia NP) Anxiety Depression History of shingles Hyperlipidemia Kidney stones Peripheral neuropathy Trigeminal neuralgia Surgical History Surgical History History of arthroscopy of both knees History of lumpectomy of left breast History of melanoma on back History of tooth extraction Total knee replacement status Right knee Trigeminal neuralgia s/p decompression surgery and gamma knife Family History Family History Sibling Heart disease Multiple sclerosis Mother Cancer of unknown origin Breast cancer Father Acute myocardial infarction Social History Social History Social History: The patient lives at home with her . She is a full code. Lifelong nonsmoker.
== END 2022-12-08 17:26 | disposition home or self-care (01) ==
PROVIDERS: Emergency Provider Registered Nurse; PCP Internal Medicine
DX: S20.212A Contusion of left front wall of thorax, initial encounter (principal); S60.011A Contusion of right thumb without damage to nail, initial encounter; F41.9 Anxiety disorder, unspecified; F32.A Depression, unspecified; E78.5 Hyperlipidemia, unspecified; W18.09XA Striking against other object with subsequent fall, initial encounter; Y92.002 Bathroom of unspecified non-institutional (private) residence as the place of occurrence of the external cause
CPT/HCPCS: 71101; 73130; 99214; G0463

== ENCOUNTER 2023-08-08 15:00 | Outpatient (CLI) | payer MEDICARE, BC, SELFPAY ==
--- NOTE | ~2023-08-08 | CT_ITS ---
EXAMINATION: CT abdomen pelvis w con DATE: 08/08/2023 15:46 INDICATION: Abdominal pain. TECHNIQUE: Computed tomography (CT) of the abdomen and pelvis was performed with 100 mL Omnipaque 350 intravenous contrast. Automated exposure control and iterative reconstruction technique were employe d. The dose-length product was 965.37 mGy-cm. COMPARISON: Chest CT 12/17/2021 FINDINGS: The visualized portions of the lung bases demonstrate scattered groundglass opacities. Calc ified pulmonary nodules and calcified hilar and mediastinal lymph nodes are consistent with old granu lomatous disease. No pleural effusion. The heart size is normal. No pericardial effusion. There is a moderate-sized sliding hiatal hernia. The liver, gallbladder, spleen, pancreas, and adrenal glands ar e normal. There is cortical thinning of the kidneys. There are no dilated loops of bowel. The appendi x is normal. Aortic atherosclerosis is noted. There are no pathologically enlarged lymph nodes. There is no free intraperitoneal fluid. There is severe lumbar spondylosis. There is mild chronic anterior wedging of multiple vertebral bodies. IMPRESSION: 1. Moderate-sized sliding hiatal hernia. 2. Groundglass opacities in the lungs with improvement from 12/17/2021, which may be atelectasis, atyp ical pneumonia, mild pulmonary edema, or chronic lung disease. Reviewed, dictated and finalized at location E. IMPRESSION: 1. Moderate-sized sliding hiatal hernia. 2. Groundglass opacities in the lungs with improvement from 12/17/2021, which ma y be atelectasis, atypical pneumonia, mild pulmonary edema, or chronic lung dis ease.
[2023-08-08 15:40] LABS: Estimated Glomerular Filt Rate 31
== END 2023-08-08 15:01 | disposition home or self-care (01) ==
PROVIDERS: PCP Internal Medicine; Visit Provider Internal Medicine Hematology & Oncology
DX: K44.9 Diaphragmatic hernia without obstruction or gangrene (principal)
CPT/HCPCS: 74177; Q9967

== ENCOUNTER 2024-05-26 14:57 | Outpatient (CLI) | payer MEDICARE, BC, SELFPAY ==
[2024-05-26 15:14] LABS: Basophils Percent Auto 0.9 % (0.2-1.2); Eosinophils Absolute Auto 0.1 K/mm3 (0-0.3); Eosinophils Percent Auto 2.3 % (0-4.4); Hematocrit 35.7 % (37.0-47.0); Hemoglobin 11.5 g/dL (12.0-15.0); Immature Granulocyte Absolute 0.02 K/mm3 (0.00-0.031); Immature Granulocyte Percent A 0.4 % (0-0.5); Lymphocytes Absolute Auto 1.79 K/mm3 (0.9-3.2); Lymphocytes Percent Auto 38.2 % (18.3-44.2); Mean Corpuscular HGB Conc 32.2 g/dl (32-36); Mean Corpuscular Hemoglobin 30.3 pg (26-34); Mean Corpuscular Volume 94.2 fl (80-100); Mean Platelet Volume 10.4 fl (7.4-10.4); Monocytes Absolute Auto 0.4 K/mm3 (0.1-0.6); Monocytes Percent Auto 9.4 % (2.6-8.5); Neutrophils Absolute Auto 2.3 K/mm3 (1.3-6.7); Neutrophils Percent Auto 48.8 % (45.5-73.1); Platelet Count Result 172 k/mm3 (150-375); Red Blood Count 3.79 M/mm3 (4.2-5.4); Red Cell Distribution Width 14.4 % (11.5-14.5); White Blood Count 4.7 K/mm3 (4.5-10.0)
[2024-05-26 16:36] LABS: Iron 55 ug/dL (37-170)
[2024-05-26 16:45] LABS: Percent Iron Saturation 19 % (20-50)
[2024-05-26 17:54] LABS: Folic Acid > 20.0 ng/mL (2.76->20)
== END 2024-05-26 14:58 | disposition home or self-care (01) ==
LOC: ANHLAB 14:59
PROVIDERS: PCP Internal Medicine; Visit Provider Internal Medicine Hematology & Oncology
DX: D64.9 Anemia, unspecified (principal)
CPT/HCPCS: 36415; 82607; 82728; 82746; 83540; 83550; 85025

== ENCOUNTER 2025-07-23 13:37 | Outpatient (CLI) | payer MEDICARE, BC, SELFPAY ==
--- OUTSIDE RECORDS SUMMARY | 2009-12-01 04:45 | XMS_ITS | Continuity of Care Document ---
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 [address] [facility], [address], [place], [place], [id number], [place]. tel:[phone] Referring Provider: William capone, [address] [place] [address], [place], [place], [facility]. tel:[phone] formerly [facility], [address] [place] [address] [address], [place], [place], [id number], [place] tel:[phone] SEC [facility] [place] No Information 0 Jostin Thomas. [address] [place] [address], [address], [place]. tel:[phone] Family History Family Member Type Diagnosis Age At Onset No Information Payers Payer name Insurance type Covered democrat ID Authorbenjamin munoz(s) [employer]BS [place] Out [place] [id number] Social History Type Description Quantity Date Captured Comments Sex Female Smoking Status No Information Chief Complaint And Reason For Visit No Information Reason For Referral Reason For Referral No Information History Of Present Illness Encounter Date Complaint History Of Prese nt Illness No Information Functional Status Date Functional Assessmen t No Information Instructions Date Instruction Additional Infor mation No Information Assessments Type Assessment Date No Information Patient Care Teams Name Effective Dates (start - stop) Status Members No Information
--- OUTSIDE RECORDS SUMMARY | 2025-07-23 13:41 | XMS_ITS | Clinical Summary ---
Author Organization [facility] Address [address] [place] [address] Care Team Providers Care Campground Cleaning Attendant Name Role Phone Da Seo MD Primary Care Provider Allergies Active Allergy Reactions Criticality Noted Date Comments Atorvastatin Muscle pain Medium 03/23/2020 Ketorolac Other (See comments) Low 02/11/2020 Breathing issue Venlafaxine Dizziness Low 03/23/2020 Bupropion Mental status changes Low 10/16/2021 Medications allopurinoL (ZYLOPRIM) 100 mg tablet Take 100 mg by mouth every morning 06/27/20 21 Active calcitRIOL (ROCALTROL) 0.25 mcg capsuleIndicat ions:Vitamin D Deficiency Take 0.25 mcg by mouth every morning 12/18/19 20 Active diazePAM (VALIUM) 2 mg tablet Take 2 mg by mouth as needed for anxiety Active ergocalciferol (VITAMIN D) 50,000 unit capsule Take 50,000 Units by mouth every 8 (eight) weeks 12/18/19 20 Active escitalopram (LEXAPRO) 20 mg tabletIndicati ons:Anxiety with Depression Take 20 mg by mouth every morning 11/23/19 20 Active furosemide (LASIX) 40 mg tabletIndicati ons:hypertensi on Take 40 mg by mouth 2 (two) times a day 12/18/[address] (PROTONIX) 40 mg EC tabletIndicati ons:gerd Take 40 mg by mouth as needed 05/16/20 20 Active potassium chloride ER (KLOR-CON) 20 mEq CR tablet Take 20 mEq by mouth nightly Active cholecalcifero l, vitamin D3, (VITAMIN D3 ORAL) Take 1 Dose by mouth every morning Active senna-docusate (PERICOLACE) 8.6-50 mgIndications: constipation Take 2 tablets by mouth 2 (two) times a day 80 tablet 10/31/20 21 Active HYDROcodone-ac etaminophen (NORCO) 10-325 mg per tablet Take 1 tablet by mouth 4 (four) times a day as needed 05/23/20 22 Active rosuvastatin (CRESTOR) 10 mg tablet Take 1 tablet by mouth daily 04/30/20 22 Active traZODone (DESYREL) 100 mg tablet Take 100 mg by mouth as needed 06/20/20 22 Active amoxicillin 500 mg tablet/capsule amoxicillin 500 mg capsule Active gabapentin (Neurontin) 300 mg capsule Neurontin 300 mg capsule Take 3 capsules 3 times a day by oral route. Active nitroglycerin (NITROSTAT) 0.4 mg SL tablet nitroglycerin 0.4 mg sublingual tablet DIS 1 T UNT PRN. MAX 3 DOSES IN 15 MIN. Active raloxifene (EVISTA) 60 mg tablet raloxifene 60 mg tablet Active ROPivacaine (NAROPIN) 5 mg/mL (0.5 %) injection 4 mL (20 mg total) A ctive sulfamethoxazo le-trimethopri m (BACTRIM) 400-80 mg per tablet sulfamethoxazole 400 mg-trimethoprim 80 mg tablet TAKE 1 TABLET BY MOUTH EVERY 12 HOURS Acti ve zolpidem (Ambien) 10 mg tablet Ambien 10 mg tablet Take 1 tablet every day by oral route. 04/14/20 14 Active carBAMazepine (TegretoL) 200 mg tablet Take 1 tablet (200 mg total) by mouth 2 (two) times a day 60 tablet 11 07/09/20 24 Active pregabalin (LYRICA) 300 mg capsuleIndicat ions:Neuropath ic Pain Associated with Spinal Cord Injury Take 1 capsule (300 mg total) by mouth 3 (three) times a day 90 capsule 5 07/10/20 24 Active Active Problems Problem Noted Date Diagnosed Date Class 2 obesity in adult 10/24/2021 Trigeminal neuralgia 10/24/2021 History of DVT (deep vein thrombosis) 10/24/2021 Chronic, continuous use of opioids 10/24/2021 At risk for obstructive sleep apnea 10/24/2021 Acute bronchitis 06/28/2021 Anxiety 06/28/2021 Depression 06/28/2021 Knee joint effusion 06/28/2021 Enthesopathy of hip region 06/28/2021 Disorder of bursae of shoulder region 06/28/2021 Orthopedic aftercare 06/28/2021 Leukopenia 06/28/2021 Pure hypercholesterolemia 06/28/2021 Rhinitis 06/28/2021 Gastroesophageal reflux disease 08/10/2020 CKD (chronic kidney disease) stage 3, GFR 30-59 ml/min 03/23/2020 Abnormal EKG 01/11/2020 Anemia 01/11/2020 Chronic kidney disease, stage 2 (mild) 0 Hyperlipidemia 01/11/2020 Edema 01/11/2020 Dyspnea on exertion 01/11/2020 Primary hypertension 01/11/2020 Snoring 01/11/2020 Vitamin D deficiency 01/11/2020 Primary osteoarthritis of right knee 01/06/2020 Chondromalacia of patella 08/13/2019 Current tear of medial cartilage or meniscus of knee 08/13/2019 Osteoporosis 01/06/2018 Chronic pain syndrome 11/05/2017 Osteoarthritis 05/15/2017 Chest pain 12/14/2015 Immunizations Immunization Administration Dates Next Due Flucelvax Influenza Quad MDI 09/24/2013 Influenza, Trivalent, High D ose, Split, Preservative Free, Intramuscular 09/07/2015 Influenza, Trivalent, IM (MDV) 10/18/2014,2011 Influenza, Unspecified 09/04/2021,10/16/2014 Pfizer SARS-CoV-2 Monovalent Vaccination (12+ Yrs) BLOOM-READY TO USE 04/19/2022 Pneumococcal Conjugate PCV 13 10/13/2014 Pneumococcal Polysaccharide PPV23 08/18/2012 Surgical History Surgery Date Site/Laterality Comments OTHER SURGICAL HISTORY 11/04/1996 - 11/03/1997 surgery on skull for trigeminal neuralgia Medical History Medical History Date Comments CKD (chronic kidney disease) HTN (hypertension) HLD (hyperlipidemia) Anxiety Depression DVT (deep venous thrombosis) Anemia GERD (gastroesophageal reflux disease) Chronic pain syndrome Trigeminal neuralgia Family History Medical History Relation Name Comments Cancer Brother 1 Heart disease Brother 1 Multiple sclerosis Brother 2 Cancer Father Cancer Mother Anesthesia problems Neg Hx Relation Name Status Comments Brother 1 Brother 2 Alive Father Mother Social History Tobacco Use Types Packs/Day Years Used Date Smoking Tobacco: Never Smokeless Tobacco: Never Tobacco Cessation:Counseling Given: No AUDIT-C Answer Date Recorded Q1: How often do you have a drink containing alc ohol? Never 06/11/2022 Average Number of Drinks Not on file 022 Q3: How often do you have si x or more drinks on one occasion? 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 Gender Identity Not on file Sexual Orientation Not on file Occupation Industry Job Start Date Job End Date Retired Not on file Not on file Not on file Obstetrics History Last Filed Vital Signs Vital Sign Reading Time Taken Comments Blood Pressure 117/68 06/27/2022 12:45 PM CDT Pulse 72 06/27/2022 12:45 PM CDT Temperature 36.4 C (97.5 F) 06/26/2022 2:14 PM CDT Respiratory Rate 16 06/27/2022 12:45 PM CDT Oxygen Saturation 98% 06/27/2022 12:45 PM CDT Inhaled Oxygen Concentration - - Weight 101.4 kg (223 lb 8 oz) 06/26/2022 2:14 PM CDT Height 167.6 cm (5' 5.98) 06/26/2022 2:14 PM CD T Body Mass Index 36.09 06/26/2022 2:14 PM CDT Plan of Treatment Health Maintenance Due Date Last Done Comments Depression Screening 1945 Hepatitis C Screening 1945 Osteoporosis Screening-Bone Density Scan 1945 DTaP/Tdap/Td Vaccine (1 - Tdap) 1958 Hepatitis B Screening 1965 Zoster Vaccine (1 of 2) 1997 Well Visit 65+ 2012 Pneumococcal vaccine 65+ (3 of 3 - PCV20 or PCV21) 10/13/2019 10/13/2014, 08/18/2012 Fall Risk Assessment 06/26/2023 06/26/2022, 11/01/20 21 Covid-19 Vaccine (3 - 2024-2 6 season) 2025 04/19/2022, 01/09/2021 Influenza Vaccine (#1) 2025 , 09/07/2015, 10/18/2014, Additional history exists Medical Devices Implanted Type Area Sliver Lap Tender Device Identifier Shelf Expiration Date Model / Serial / Lot [employer] [id number] Smartset Medium Viscosity Cement 40gm Bone Gentamicin - [id number] Implanted:Qty: 1 on 10/31/2021 by Jacob Amato MD at [facility] Bone Cement Right: Knee [employer] 05/03/2023 [id number] / / [id number] Description:Times are approx imated [employer] [id number] Smartset Medium Viscosity Cement 40gm Bone Sterile - [id number] Implanted:Qty: 1 on 10/31/2021 by Jacob Amato MD at [facility] Bone Cement Right: Knee [employer] 03/03/2023 [id number] / / [id number] Description:Times are approx imated [employer] [id number] Attune Cemented Cruciate Retaining Knee Right 6 Component Femoral - [id number] Implanted:Qty: 1 on 10/31/2021 by Jacob Amato MD at [facility] Right: Knee [employer] [id number] 08/03/2031 [id number] / / [id number] [employer] [id number] Attune 14mm 50mm Cemented Revision Knee Stem Femoral Sterile - [id number] Implanted:Qty: 1 on 10/31/2021 by Jacob Amato MD at [facility] Right: Knee [employer] [id number] 06/03/2031 [id number] / / [id number] [employer] [id number] Attune Revision Cement Fix Bearing Knee 6 Baseplate Tibial - [id number] Implanted:Qty: 1 on 10/31/2021 by Jacob Amato MD at [facility] Right: Knee [employer] [id number] 02/01/2031 [id number] / / [id number] Tibial Insert Fixed Bearing Medial Stabilizer Size 6 Right 8mm Aox Implanted:Qty: 1 on 10/31/2021 by Jacob Amato MD at [facility] Right: Knee [employer] [id number] 08/03/2029 [id number] / / [id number] Description:[id number] [facility] [id number] No CC in [employer] Insurance MEDICARE [employer] [facility] [employer] [place] BLUE ACCESS [place] MEDICARE BLUE ACCESS OOS Advance Directives For more information, please contact: [phone] * Full Code (Latest Code Status on File) Date Activated Date Inactivated Comments 10/31/2021 2:13 PM 11/01/2021 3:07 PM Care Teams Campground Cleaning Attendant Relationship Specialty Start Date End Date Da Seo MD [address] [address] PCP - General Internal Medicine 03/28/21
--- OUTSIDE RECORDS SUMMARY | 2025-07-23 13:41 | XMS_ITS | Clinical Summary ---
Author Organization [facility] Address [address] [place] [address] Care Team Providers Care Filing Clerk Name Role Phone Da Seo MD Primary Care Provider [phone] Allergies Active Allergy Reactions Criticality Noted Date Comments Atorvastatin Muscle Pain Low 03/23/2020 Ketorolac Tromethamine Other (See Comments) 07/2020 Breathing issue Venlafaxine Dizziness Low 03/23/2020 Medications furosemide (LASIX) 40 mg tablet Take 40 mg by mouth 2 times daily. Active potassium chloride (KLOR-CON) 20 mEq Extended Release tablet Take 20 mEq by mouth 4 times daily. Active escitalopram oxalate (LEXAPRO) 20 mg tablet Take 20 mg by mouth daily. Active pregabalin (LYRICA) 225 mg Capsule Take 225 mg by mouth every 8 hours. Active famotidine (PEPCID AC ORAL) Take by mouth. Activ e cetirizine (ZyrTEC) 10 mg tablet Take 10 mg by mouth daily. Active HYDROcodone-juani taminophen (NORCO) 10-325 mg Tablet Take 1 Tablet by mouth every 4 hours as needed for Pain, Moderate. Active allopurinoL (ZYLOPRIM) 100 mg tablet Take 100 mg by mouth daily. Active diazePAM (VALIUM) 2 mg tablet Take 2 mg by mouth every 6 hours as needed for Anxiety. Active ergocalciferol, vitamin D2, (VITAMIN D ORAL) Take by mouth. Every other day Active ergocalciferol (VITAMIN D2) 50,000 unit capsule Take 50,000 Units by mouth. Active zolpidem (Ambien) 10 mg tablet every 24 hours. Acti ve venlafaxine (Effexor XR) 150 mg Extended Release 24 hour capsule Effexor XR 150 mg capsule,extended release Active triamcinolone acetonide (Kenalog) 10 mg/mL Suspension Kenalog 10 mg/mL suspension for injection In office injection administered by the provider Active nitroglycerin (NITROSTAT) 0.4 mg Tablet, Sublingual nitroglycerin 0.[address] 1 TABLET (0.4 MG) BY SUBLINGUAL ROUTE EVERY 5 MINUTES NEEDEDFOR CHEST PAIN. DO NOT EXCEED 3 DOSES IN 15 MINUTES. Active sodium hyaluronate (ORTHOVISC) 30 mg/2 mL Syringe ORTHOVISC 30 mg/2 mL intra-articular syringe Injections given in the office by the doctor Active ciprofloxacin HCl (Cipro) 500 mg tablet 2 times daily. Activ e calcitRIOL (ROCALTROL) 0.25 mcg capsule 0 Active albuterol HFA 90 mcg inhaler every 4 hours. Active ranitidine HCl (ZANTAC 150 EFFERDOSE ORAL) Zantac bid Active naloxone (NARCAN) 4 mg/spray [place], Non-Aerosol Administer 1 spray (4 mg) in one nostril one time. May repeat in alternating nostrils every 2-3 min until responsive or EMS arrives. 2 Each 3 0 Active pantoprazole (PROTONIX) 40 mg Tablet, Delayed Release (E.C.) TAKE 1 TABLET BY MOUTH EVERY DAY 0 Active cefdinir (OMNICEF) 300 mg capsule every 12 hours. Act shiva celecoxib (CeleBREX) 100 mg capsule Take 1 Capsule (100 mg) by mouth daily. 30 Capsule 1 0 Active rosuvastatin (CRESTOR) 10 mg tablet Take 1 Tablet by mouth daily. 2 Active Synthroid 50 mcg tablet Take 50 mcg by mouth daily. 4 Active Active Problems Problem Noted Date Diagnosed Date Anemia of chronic renal failure 08/31/2024 Anemia of chronic renal failure, stage 3 (modera te) 03/23/2020 Encounters Date Type Department Care Team Description 07/23/2025 Telephone [facility] - [place] [address] [place] [phone] Kwabena Gaffney MD labs for appt 07/06/2025 External Device Data STL ABSTRACTION Provider, Abstract 06/23/2025 External Device Data STL ABSTRACTION Provider, Abstract 06/15/2025 External Device Data [place] ABSTRACTION Provider, Abstract 06/09/2025 External Device Data STL ABSTRACTION Provider, Abstract from Last 3 Months Family History Medical History Relation Name Comments Heart Disease Brother 1 Cancer Mother Relation Name Status Comments Brother 1 Brother 2 Alive Father Mother Social History Tobacco Use Types Packs/Day Years Used Date Smoking Tobacco: Never Smokeless Tobacco: Never Tobacco Cessation:Counseling Given: Not Answered Alcohol Use Standard Drinks/Week Comments Never 0 (1 standard drink = 0.6 oz pur e alcohol) Comments No Sex and Gender Information Value Date Recorded Sex Assigned at Not on file Legal Sex Female 1:43 PM CDT Gender Identity Not on file Sexual Orientation Not on file Last Filed Vital Signs Vital Sign Reading Time Taken Comments Blood Pressure 105/61 01/20/2025 2:51 PM CDT Pulse 85 01/20/2025 2:51 PM CDT Temperature 37.2 C (98.9 F) 01/20/2025 2:51 PM CDT Respiratory Rate 15 01/20/2025 2:51 PM CDT Oxygen Saturation 94% 01/20/2025 2:51 PM CDT Inhaled Oxygen Concentration - - Weight 102.3 kg (225 lb 9.6 oz) 01/20/2025 2:51 PM CDT Height 167.6 cm (5' 6) 05/16/2022 11:4 5 AM CDT Body Mass Index 36.41 05/16/2022 11:45 AM CDT Plan of Treatment Upcoming Encounters Date Type Department Care Team (Late st Contact Info) Description 07/26/2025 3:30 PM CDT Office Visit [facility] - [place] [address] [facility] [address] [place] [address] Kwabena Gaffney MD [address] [facility] [address] [place] [address] Health Maintenance Due Date Last Done Comments DTAP/TDAP/TD VACCINES (1 - Tdap) 1964 Traditional Medicare (ACO) A nnual Wellness Visit 1964 ZOSTER VACCINE (1 of 2) 1997 PNEUMOCOCCAL VACCINE 50+ YEA RS (3 of 3 - PCV20 or PCV21) 10/13/2019 10/13/2014, 08/18/2012 RSV VACCINE (60+ or ) (1 - 1-dose 75+ series) 2022 INFLUENZA VACCINE (#1) 2025 3, 10/17/2022, 09/06/2021, Additional history exists COVID-19 Vaccine (2 - 2024-2 6 season) 2025 04/19/2022 OSTEOPOROSIS SCREENING 11/22/2027 11/22/2022, 2022 COLORECTAL SCREENING Discontinued 04/10/2013 Colorectal Cancer Screening Discontinued FIT-DNA Q 3 years Discontinued FIT/FOBT Q 1 year Discontinued Flex Sig/CT Colonography Q 5 years Discontinued Insurance MEDICARE PART A AND B BC SUPP Care Teams Filing Clerk Relationship Specialty Start Date End Date Da Seo MD [address] [facility] [address] [place] [id number] PCP - General Internal Medicine 01/14/20
--- OUTSIDE RECORDS SUMMARY | 2025-07-23 13:41 | XMS_ITS | Encounter Summary ---
Author Organization [facility] [employer] [facility] Address [address] [place] [address] Care Team Providers Care Centrifugal Screen Tender Name Role Phone Da Seo MD Primary Care Provider [phone] Reason for Visit * Reason Onset Date Comments labs for appt 07/23/2025 Encounter Details Date Type Department Care Team (Late st Contact Info) Description 07/23/[address] [facility] Oncology and Hematology - [place] [address] [place] [phone] Kwabena Gaffney MD [address] [facility] [address] [place] [address] labs for appt Social History Tobacco Use Types Packs/Day Years Used Date Smoking Tobacco: Never Smokeless Tobacco: Never Alcohol Use Standard Drinks/Week Comments Never 0 (1 standard drink = 0.6 oz pur e alcohol) Comments No Sex and Gender Information Value Date Recorded Sex Assigned at Not on file Legal Sex Female 1:43 PM CDT Gender Identity Not on file Sexual Orientation Not on file documented as of this encounter Miscellaneous Notes * Telephone Encounter - Jaylin Kim - 07/23/2025 9:19 AM CDT LVM for patient regarding labs for her appointment. She would need to have those done prior to her appointment Saturday. documented in this encounter Plan of Treatment Upcoming Encounters Date Type Department Care Team (Late st Contact Info) Description 07/26/2025 3:30 PM CDT Office Visit [facility] Oncology and Hematology - [place] [address] [facility] [address] [address] [place] [address] Kwabena Gaffney MD [address] [facility] [address] [place] [address] documented as of this encounter Visit Diagnoses Not on filedocumented in this encounter Care Teams Centrifugal Screen Tender Relationship Specialty Start Date End Date Da Seo MD [address] [facility] [address] [place] [address] PCP - General Internal Medicine 01/14/20 documented as of this encounter
--- OUTSIDE RECORDS SUMMARY | 2025-07-23 13:41 | XMS_ITS | Encounter Summary ---
Author Organization [facility] Healthcare Address [address] [place] [address] Care Team Providers Care Flyer Repairer Name Role Phone Da Seo MD Primary Care Provider Encounter Details Date Type Department Care Team (Late st Contact Info) Description 06/08/2022 Telephone [facility] Radiology [address] [place] [address] Phan Raman MD [address] [facility] [address] [place] [address] Social History Tobacco Use Types Packs/Day Years Used Date Smoking Tobacco: Never Smokeless Tobacco: Never AUDIT-C Answer Date Recorded Q1: How often do you have a drink containing alc ohol? Never 06/11/2022 Average Number of Drinks Not on file 022 Q3: How often do you have si x or more drinks on one occasion? 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
[2025-07-23 14:00] LABS: Hematocrit 37.9 % (37.0-47.0); Hemoglobin 12.2 g/dL (12.0-15.0); Mean Corpuscular HGB Conc 32.2 g/dl (32-36); Mean Corpuscular Hemoglobin 30.9 pg (26-34); Mean Corpuscular Volume 95.9 fl (80-100); Platelet Count Result 154 k/mm3 (150-375); Red Blood Count 3.95 M/mm3 (4.2-5.4); White Blood Count 3.9 K/mm3 (4.5-10.0)
[2025-07-23 14:23] LABS: Anion Gap 8 mmol/L (4-12); Blood Urea Nitrogen 16 mg/dL (7-17); Calcium 9.2 mg/dL (8.4-10.2); Carbon Dioxide 27 mmol/L (22-30); Chloride 106 mmol/L (98-107); Estimated Glomerular Filt Rate 44; Glucose 104 mg/dL (65-110); Potassium 3.8 mmol/L (3.4-5.0); Sodium 141 mmol/L (137-145)
[2025-07-23 15:10] LABS: Ferritin 24.80 ng/mL (11.1-264)
[2025-07-23 15:36] LABS: Vitamin B12 589.0 pg/mL (239-931)
[2025-07-23 17:24] LABS: Iron 85 ug/dL (37-170); Percent Iron Saturation 31 % (20-50)
== END 2025-07-23 13:38 | disposition home or self-care (01) ==
LOC: ANHLAB 13:39
PROVIDERS: PCP Internal Medicine; Visit Provider Internal Medicine Hematology & Oncology
DX: D64.9 Anemia, unspecified (principal)
CPT/HCPCS: 36415; 80048; 82607; 82728; 82746; 83540; 83550; 85027